=== PATIENT | female | born 1965 | race Caucasian/White ===

== ENCOUNTER 2020-12-13 07:24 | Emergency (ER) | payer OTHER ==
--- NOTE | 2020-12-13 08:18 | EDM.PDOC ---
<King Collins - Last Filed: 12/13/20 11:10> ED HPI GENERAL MEDICAL PROBLEM - General Chief Complaint: Flank Pain Stated Complaint: FEVER, BACK SPASMS Time Seen by Provider: 12/13/20 08:00 - Related Data Allergies Allergy/AdvReac Type Severity Reaction Status Date / Time No Known Allergies Allergy Verified 12/13/20 07:46 Home Meds: Home Meds NK [No Known Home Meds] 12/13/20 [History] ED EXAM, RENAL/ - Physical Exam Exam: See Below Departure - Departure Time of Disposition: 08:53 Disposition: Home, Self-Care 01 Clinical Impression: Cellulitis of groin, left - Discharge Information Instructions: Cellulitis, Adult, [id number] Referrals: PCP,None [Primary Care Provider] - Forms: ED Department Discharge Additional Instructions: Left groin cellulitis present today, please take oral antibiotic (Augmentin) prescription for its full course and with food. Increase oral fluid intake to promote hydration, your urine was very concentrated today. Return to the ER if increased redness, uncontrolled fevers, new pain/ drainage to left groin, or if symptoms are not improving after the course of antibiotics. <Claribel Camp - Last Filed: 12/13/20 11:11> ED HPI GENERAL MEDICAL PROBLEM - General Source of Information: Reports: Patient, Family History Limitations: Reports: No Limitations ( ) - History of Present Illness INITIAL COMMENTS - FREE TEXT/NARRATIVE: 54 year old female presents to the ER with complaints of right flank pain and left groin pain. She reports having low grade fevers from 100.0-101.0 for about 5 days and has been taking grape seed oil at home as a nonpharmacologic intervention for her symptoms. Afebrile today. She denies nausea or vomiting but admits to poor oral intake and fatigue causing her to not want to get out of bed. She reports that she has a history of scoliosis and kidney infections in the past and has also had a "rash" to her left groin for the last couple days. Denies other associated symptoms, no dysuria, hematuria, frequency, or other urinary symptoms. Reports some mild constipation for the last 5 days but believes it to be caused by her decreased oral intake. Onset: Gradual Onset Date: 12/08/20 Duration: Day(s): Location: Reports: Back, Other (Right flank/ low right back, and left groin fold) Quality: Reports: Ache Severity: Moderate Improves with: Reports: None Worsens with: Reports: Movement Context: Reports: Activity Associated Symptoms: Reports: Rash, Weakness. Denies: Chest Pain, Cough, Diaphoresis, Nausea/Vomiting, Shortness of Breath Right Flank Pain Score (Numeric/FACES): 6 Past Medical History HEENT History: Reports: Impaired Vision Musculoskeletal History: Reports: Fracture - Infectious Disease History Infectious Disease History: Reports: Chicken Pox - Past Surgical History Female Surgical History: Reports: Cervical Conization Social & Family History - Tobacco Use Tobacco Use Status *Q: Former Tobacco User Years of Tobacco use: 10 Packs/Tins Daily: 1 Used Tobacco, but Quit: Yes Month/Year Tobacco Last Used: november 1996 Second Hand Smoke Exposure: No - Caffeine Use Caffeine Use: Reports: None - Recreational Drug Use Recreational Drug Use: No ED ROS GENERAL - Review of Systems Review Of Systems: See Below Constitutional: Reports: Malaise HEENT: Reports: No Symptoms Respiratory: Denies: Shortness of Breath, Wheezing, Pleuritic Chest Pain, Cough Cardiovascular: Reports: No Symptoms. Denies: Chest Pain Endocrine: Reports: No Symptoms GI/Abdominal: Reports: No Symptoms. Denies: Abdominal Pain, Black Stool, Bloody Stool, Nausea, Vomiting : Reports: Flank Pain. Denies: Dysuria, Frequency, Hematuria Musculoskeletal: Reports: Back Pain Skin: Reports: Erythema, Other (erythema and warmth to left groin fold) Neurological: Reports: No Symptoms. Denies: Confusion, Dizziness, Headache, Numbness, Weakness Psychiatric: Reports: No Symptoms Hematologic/Lymphatic: Reports: No Symptoms Immunologic: Reports: No Symptoms ED EXAM, RENAL/ - Physical Exam Text/Narrative:: Patient is resting on cart next to and at times holding right flank. Does not appear to be in distress, respirations equal and non labored. skin is warm and dry. She is alert and oriented. No obvious erythema, injury, or deformity to right flank, no pain with percussion. She does appear to have pain with muscle movement such as twisting back and moving from chair to bed. Left groin is erythemic, warm and sensitive to palpation. Small skin tear or bug bite noted. Redness extends from left medial upper thigh, in the groin fold, to inner left groin. Exam Limited By: No Limitations General Appearance: Alert, WD/WN, No Apparent Distress Ears: Normal External Exam Throat/Mouth: Normal Inspection. No: No Airway Compromise Head: Atraumatic Neck: Normal Inspection, Full Range of Motion Respiratory/Chest: No Respiratory Distress, Lungs Clear, Normal Breath Sounds Cardiovascular: Normal Peripheral Pulses, Regular Rate, Rhythm. No: Tachycardia GI/Abdominal: Normal Bowel Sounds, Soft, Non-Tender Back Exam: Normal Inspection, Other (right flank pain) Extremities: Normal Inspection, Normal Range of Motion Neurological: Alert, Oriented, Normal Cognition, Normal Gait Psychiatric: Normal Affect Skin Exam: Warm, Dry, Erythema (left groin fold has erythema and increased warmth), Increased Warmth Course - Vital Signs Text/Narrative:: left groin cellulitis present so course of oral Augmentin prescribed. Offered to draw labs to check kidney function due to concentrated urine and provide IV hydration to patient for rehydration but patient reports that she does not want to go forward with that at this time. Plan to discharge on antibiotics and follow up if not improving. Recommend increasing oral fluid intake. Last Recorded V/S: Last Vital Signs Temp 36.0 C L 12/13/20 07:45 Pulse 100 12/13/20 07:45 Resp 16 12/13/20 07:45 BP 126/71 12/13/20 07:45 Pulse Ox 96 12/13/20 07:45 - Orders/Labs/Meds Labs: Laboratory Tests 12/13/20 Range/Units 07:37 Urine Color Yellow (YELLOW) Urine Appearance Slightly cloudy A (CLEAR) Urine pH 5.5 (5.0-8.0) Ur Specific [place] 1.025 (1.008-1.030) Urine Protein Trace H (NEGATIVE) mg/dL Urine Glucose (UA) Negative (NEGATIVE) mg/dL Urine Ketones 80 H (NEGATIVE) mg/dL Urine Occult Blood Trace-intact H (NEGATIVE) Urine Nitrite Negative (NEGATIVE) Urine Bilirubin Moderate H (NEGATIVE) Urine Urobilinogen 1.0 (0.2-1.0) EU/dL Ur Leukocyte Esterase Trace H (NEGATIVE) Urine RBC 5-10 H (0-5) Urine WBC 0-5 (0-5) Ur Epithelial Cells Many Amorphous Sediment Not seen Urine Bacteria Few Urine Mucus Many Departure - Departure Time of Disposition: 08:53 Condition: Good Sepsis Event Note (ED) - Evaluation Sepsis Screening Result: No Definite Risk - Focused Exam Vital Signs: Vital Signs Temp Pulse Resp BP Pulse Ox 12/13/20 07:45 36.0 C L 100 16 126/71 96 12/13/20 07:41 36.0 C L 100 16 126/71 96 Attestation - Student - Attestation Statement Attestation Statement: I personally performed or re-performed the physical examination and medical decision making. I have verified all student documentation or findings, incl uding history, physical exam and/or medical decision making.
== END 2020-12-13 08:53 | disposition home or self-care (01) ==
LOC: JP.ED 07:24
DX: L03.314 Cellulitis of groin (principal); Z87.891 Personal history of nicotine dependence
CPT/HCPCS: 81001; 99283